=== PATIENT | male | born 1990 | race Native Hawaiian/Other Pacific Islander ===

== ENCOUNTER 2017-10-06 14:49 | Emergency (ER) | payer SELFPAY ==
[2017-10-06 14:52] VITALS: BP 124/60; PULSE 74; RESP 16; TEMP 98.9; O2SAT 99
[2017-10-06] MEDS ORDERED: ZOFR4TAB PO (16:20)
--- NOTE | 2017-10-06 16:29 | PD ---
HPI Chief Complaint: GI Complaint Time Seen by Provider: 14:57 Travel History International Travel<30 days: No Contact w/Intl Traveler<30days: No Traveled to known affect area: No History of Present Illness HPI This patient had recent surgery on the right shoulder. Complains of a rash that is developed around his right shoulder. Denies fever or repeat injury. Complains of some nausea as well. He has pain medication but hasn't tried it. Some severity is mild to moderate. No alleviating factors. He also complains of some myalgia and some headache. No thunderclap onset. PFSH Social History Alcohol Use: No Tobacco Use: No Substance Use: No Allergies-Medications (Allergen,Severity, Reaction): Coded Allergies: No Known Allergies (Unverified , 10/06/17) Reported Meds & Prescriptions Reported Meds & Active Scripts Active Zofran (Ondansetron HCl) 4 Mg Tab 4 Mg PO Q6HR PRN Review of Systems General / Constitutional: No: Fever Eyes: No: Visual changes HENT: Positive: Headaches, Lightheadedness Cardiovascular: No: Chest Pain or Discomfort Respiratory: No: Shortness of Breath Gastrointestinal: Positive: Nausea, No: Abdominal Pain Genitourinary: No: Dysuria Musculoskeletal: Positive: Pain Skin: Positive Rash Neurologic: No: Weakness Psychiatric: No: Depression Endocrine: No: Polydipsia Hematologic/Lymphatic: No: Easy Bruising Physical Exam Narrative GENERAL: Well-nourished, well-developed patient in no apparent distress. SKIN: Focused skin assessment reveals no rash and nodules. Skin is Warm and dry. HEAD: Atraumatic. Normocephalic. EYES: Pupils equal and round. No scleral icterus. No injection or drainage. ENT: No nasal bleeding or discharge. Mucous membranes pink and moist. NECK: Trachea midline. No JVD. No meningeal signs CARDIOVASCULAR: Regular rate and rhythm. No murmur appreciated. RESPIRATORY: No accessory muscle use. Clear to auscultation. Breath sounds equal bilaterally. GASTROINTESTINAL: Abdomen soft, non-tender, nondistended. Hepatic and splenic margins not palpable. MUSCULOSKELETAL: No obvious deformities. No clubbing. No cyanosis. No edema. Incision in the right lateral pectoral region is intact without dehiscence or infection. There are Steri-Strips over it. I removed his dressings. There is a blistered rash in the distribution of the dressing. NEUROLOGICAL: Awake and alert. No obvious cranial nerve deficits. Motor grossly within normal limits. Normal speech. PSYCHIATRIC: Appropriate mood and affect; insight and judgment normal. Data Data Last Documented VS Vital Signs Date Time Temp Pulse Resp B/P (MAP) Pulse Ox O2 Delivery O2 Flow Rate FiO2 10/06/17 14:52 98.9 74 16 124/60 (81) 99 MDM Medical Decision Making Medical Screen Exam Complete: Yes Emergency Medical Condition: Yes Medical Record Reviewed: Yes Differential Diagnosis Allergic reaction, cellulitis , dehiscence Narrative Course I have reviewed the patient's electronic medical record. This patient looks clinically well. Vitals are normal. He looks like he is having an allergic reaction at the site of the dressing on the right shoulder. I have removed that. It is mild and I believe will resolve without any specific treatment. Otherwise he may have a viral or flu-type syndrome. He does not have any meningeal signs or subarachnoid hemorrhage suspicion. I wrote some Zofran to use if needed The patient was advised to follow up with their physician and return if they worsen. Diagnosis Primary Impression: Contact dermatitis Qualified Codes: L23.1 - Allergic contact dermatitis due to adhesives Additional Impressions: Malaise Nausea Headache Qualified Codes: R51 - Headache Additional Instructions: The patient was advised to follow up with their physician and return if they worsen. Med/Other Pt SpecificInfo: Prescription(s) given Scripts Ondansetron (Zofran) 4 Mg Tab 4 MG PO Q6HR Y for NAUSEA OR VOMITING, #12 TAB 0 Refills Prov: Charly Garibay MD 10/06/17 Disposition: DISCHARGE HOME Condition: Stable Charly Garibay MD Oct 06, 2017 16:29
== END 2017-10-06 16:48 | disposition home or self-care (01) ==
LOC: NEPD 14:49
DX: L23.1 Allergic contact dermatitis due to adhesives (principal); R53.81 Other malaise; R11.0 Nausea; R51 Headache; Z98.890 Other specified postprocedural states
CPT/HCPCS: 99283